=== PATIENT | female | born 1985 | race African-American/Black ===

== ENCOUNTER 2017-12-23 13:31 | Emergency (ER) | payer BC, MEDICAID ==
[~2017-12-23] VITALS: Ht 167.6 cm; Wt 69.0 kg
[2017-12-23 13:50] VITALS: BP 119/50
[2017-12-23] MEDS ORDERED: TETRACAINE 0.5% OPHTH DROPS 4ML OP ONE (14:00)
[2017-12-23] MEDS ORDERED: FLUORESCEIN SODIUM 1MG/STRIP OP ONE (14:00)
== END 2017-12-23 16:00 | disposition home or self-care (01) ==
LOC: ER 14:51
DX: H10.31 Unspecified acute conjunctivitis, right eye (principal); F17.210 Nicotine dependence, cigarettes, uncomplicated; Z98.890 Other specified postprocedural states
CPT/HCPCS: 99283

== ENCOUNTER 2018-06-17 19:51 | Emergency (ER) | payer MEDICAID ==
[~2018-06-17] VITALS: Ht 167.6 cm; Wt 67.0 kg
[2018-06-17 21:20] LABS: CLARITY URINE CLOUDY (CLEAR); COLOR URINE YELLOW (YELLOW); KETONES URINE NEGATIVE (NEGATIVE); LEUKOCYTE ESTERASE URINE 3+ (NEGATIVE); NITRITE URINE NEGATIVE (NEGATIVE); OCCULT BLOOD URINE NEGATIVE (NEGATIVE); PROTEIN URINE NEGATIVE (NEGATIVE); SPECIFIC GRAVITY URINE 1.018 (1.005-1.030)
[2018-06-17 22:30] VITALS: BP 99/61
[2018-06-17] MEDS ORDERED: ACETAMINOPHEN 325MG TABLET PO ONE (22:45)
[2018-06-17 23:31] LABS: BASOPHILS % 1.1 % (0.0-2.0); EOSINOPHILS % 2.1 % (0.0-5.0); HEMATOCRIT. 37.7 % (36.0-48.0); HEMOGLOBIN. 12.2 g/dL (12.0-16.0); LYMPHOCYTES % 44.2 % (20.0-50.0); MEAN CORPUSCULAR HEMOGLOBIN 26.1 pg (28.0-32.0); MEAN CORPUSCULAR VOLUME 80.9 fL (81.0-99.0); MEAN PLATELET VOLUME 7.8 fl (7.4-10.4); MONOCYTES % 4.2 % (2.0-8.0); NEUTROPHILS % 48.4 % (40.0-76.0); PLATELET 341 x1000/uL (130-400); RED BLOOD CELL COUNT 4.66 mill/uL (4.2-5.4); RED CELL DISTRIBUTION WIDTH 17.1 % (11.6-14.6)
[2018-06-17 23:39] LABS: CHLORIDE 107 mEq/L (98-107)
[2018-06-18 14:34] LABS: *AMPHETAMINES SCREEN URINE NEGATIVE (NEGATIVE); *BARBITURATES SCREEN URINE NEGATIVE (NEGATIVE); *BENZODIAZEPINES SCREEN URINE NEGATIVE (NEGATIVE); *COCAINE SCREEN URINE NEGATIVE (NEGATIVE); METHADONE URINE SCREEN NEGATIVE (NEGATIVE)
[2018-06-18 14:35] LABS: OPIATES URINE SCREEN NEGATIVE (NEGATIVE); PHENCYCLIDINE URINE SCREEN NEGATIVE (NEGATIVE)
[2018-06-18 14:42] LABS: CANNABINOID URINE SCREEN PRESUMTIVE POSITIVE (NEGATIVE)
== END 2018-06-18 05:10 | disposition home or self-care (01) ==
LOC: ER 19:51
DX: R51 Headache (principal); R07.89 Other chest pain; J40 Bronchitis, not specified as acute or chronic; R82.71 Bacteriuria; F17.210 Nicotine dependence, cigarettes, uncomplicated; F12.90 Cannabis use, unspecified, uncomplicated
CPT/HCPCS: 36415; 71045; 80305; 81025; 84484; 93005; 99284

== ENCOUNTER 2020-12-14 23:39 | Emergency (ER) | payer OTHER, MEDICAID ==
[~2020-12-14] VITALS: Ht 167.6 cm; Wt 68.0 kg
[2020-12-14] MEDS ORDERED: ONDANSETRON HCL 4MG/2ML INJ IV STA (23:43)
[2020-12-14 23:48] VITALS: BP 118/68
[2020-12-14 23:58] LABS: BASOPHILS % 0.5 % (0.0-2.0); HEMATOCRIT. 35.7 % (36.0-48.0); HEMOGLOBIN. 11.6 g/dL (12.0-16.0); LYMPHOCYTES % 27.1 % (20.0-50.0); MEAN CORPUSCULAR HEMOGLOBIN 24.4 pg (28.0-32.0); MEAN CORPUSCULAR VOLUME 75.2 fL (81.0-99.0); MEAN PLATELET VOLUME 7.2 fl (7.4-10.4); MONOCYTES % 6.3 % (2.0-8.0); NEUTROPHILS % 65.1 % (40.0-76.0); PLATELET 439 x1000/uL (130-400); RED BLOOD CELL COUNT 4.75 mill/uL (4.2-5.4); RED CELL DISTRIBUTION WIDTH 16.8 % (11.6-14.6)
[2020-12-15 00:05] LABS: CHLORIDE 110 mEq/L (98-107)
[2020-12-15] MEDS ORDERED: ONDANSETRON 4MG ODT PO ONE (00:15)
[2020-12-15 00:40] LABS: CLARITY URINE CLOUDY (CLEAR); COLOR URINE YELLOW (YELLOW); KETONES URINE 1+ (NEGATIVE); LEUKOCYTE ESTERASE URINE 2+ (NEGATIVE); NITRITE URINE NEGATIVE (NEGATIVE); OCCULT BLOOD URINE NEGATIVE (NEGATIVE); PH URINE 6.5 (4.5-8.0); PROTEIN URINE NEGATIVE (NEGATIVE); SPECIFIC GRAVITY URINE 1.015 (1.005-1.030)
[2020-12-15 00:55] LABS: *AMPHETAMINES SCREEN URINE NEGATIVE (NEGATIVE); *BARBITURATES SCREEN URINE NEGATIVE (NEGATIVE); *BENZODIAZEPINES SCREEN URINE NEGATIVE (NEGATIVE); CANNABINOID URINE SCREEN NEGATIVE (NEGATIVE); PHENCYCLIDINE URINE SCREEN NEGATIVE (NEGATIVE)
[2020-12-15 00:56] LABS: METHADONE URINE SCREEN NEGATIVE (NEGATIVE); OPIATES URINE SCREEN NEGATIVE (NEGATIVE)
[2020-12-15 00:58] LABS: *COCAINE SCREEN URINE PRESUMTIVE POSITIVE (NEGATIVE)
== END 2020-12-15 02:15 | disposition home or self-care (01) ==
LOC: ER 23:39
DX: F14.10 Cocaine abuse, uncomplicated (principal); R11.2 Nausea with vomiting, unspecified; F12.10 Cannabis abuse, uncomplicated; Z98.890 Other specified postprocedural states; Z20.822 Contact with and (suspected) exposure to COVID-19
CPT/HCPCS: 36415; 80053; 80305; 81003; 81025; 83690; 85025; 87426; 99283; Q0162

== ENCOUNTER 2024-12-14 20:39 | Emergency (ER) | payer MEDICAID, OTHER ==
[~2024-12-14] VITALS: Ht 167.6 cm; Wt 78.0 kg
[2024-12-14 20:45] VITALS: O2SAT 99
[2024-12-14] MEDS: HYDROCODONE/ACETAMINOPHEN 5/325MG TABLET PO ONE (23:15)
[2024-12-14] MEDS: HYDROCODONE/ACETAMINOPHEN 5/325MG TABLET PO NR (23:56)
[2024-12-15] MEDS ORDERED: IBUP-1523 MT (01:28)
[2024-12-15] MEDS ORDERED: TOPUD MT (01:28)
[2024-12-15 02:04] VITALS: BP 106/63; PULSE 81; RESP 15; TEMP 37; O2SAT 98
== END 2024-12-15 02:10 | disposition home or self-care (01) ==
LOC: ER 20:39
DX: S40.012A Contusion of left shoulder, initial encounter (principal); S40.011A Contusion of right shoulder, initial encounter; S50.02XA Contusion of left elbow, initial encounter; S50.01XA Contusion of right elbow, initial encounter; S80.02XA Contusion of left knee, initial encounter; S80.01XA Contusion of right knee, initial encounter; F14.10 Cocaine abuse, uncomplicated; V49.88XA Car occupant (driver) (passenger) injured in other specified transport accidents, initial encounter; Y93.89 Activity, other specified; Y92.410 Unspecified street and highway as the place of occurrence of the external cause; Y99.8 Other external cause status
CPT/HCPCS: 72040; 72100; 72170; 73560; 81025; 99285; A4606